=== PATIENT | female | born 1975 | race African-American/Black ===

== ENCOUNTER 2021-04-18 19:45 | Emergency (ER) | payer SELFPAY ==
[~2021-04-18] VITALS: Ht 167.6 cm; Wt 91.0 kg
[2021-04-18] MEDS ORDERED: ACETAMINOPHEN 325MG TABLET PO STA (22:17)
[2021-04-18 22:41] LABS: *AMPHETAMINES SCREEN URINE NEGATIVE (NEGATIVE); *BARBITURATES SCREEN URINE NEGATIVE (NEGATIVE); METHADONE URINE SCREEN NEGATIVE (NEGATIVE); OPIATES URINE SCREEN NEGATIVE (NEGATIVE)
[2021-04-18 22:42] LABS: PHENCYCLIDINE URINE SCREEN NEGATIVE (NEGATIVE)
[2021-04-18 22:43] LABS: *BENZODIAZEPINES SCREEN URINE PRESUMTIVE POSITIVE (NEGATIVE); *COCAINE SCREEN URINE PRESUMTIVE POSITIVE (NEGATIVE)
[2021-04-18 22:44] LABS: CANNABINOID URINE SCREEN PRESUMTIVE POSITIVE (NEGATIVE)
[2021-04-18 22:48] LABS: BASOPHILS % 0.3 % (0.0-2.0); EOSINOPHILS % 0.1 % (0.0-5.0); HEMATOCRIT. 36.2 % (36.0-48.0); HEMOGLOBIN. 12.2 g/dL (12.0-16.0); LYMPHOCYTES % 23.4 % (20.0-50.0); MEAN CORPUSCULAR HEMOGLOBIN 32.5 pg (28.0-32.0); MEAN CORPUSCULAR VOLUME 96.3 fL (81.0-99.0); MEAN PLATELET VOLUME 6.8 fl (7.4-10.4); MONOCYTES % 10.5 % (2.0-8.0); NEUTROPHILS % 65.7 % (40.0-76.0); PLATELET 200 x1000/uL (130-400); RED BLOOD CELL COUNT 3.76 mill/uL (4.2-5.4); RED CELL DISTRIBUTION WIDTH 22.6 % (11.6-14.6)
[2021-04-18 22:55] LABS: CHLORIDE 99 mEq/L (98-107)
[2021-04-18 23:11] LABS: ETHANOL BLOOD 302 mg/dL
[2021-04-18 23:15] LABS: PLATELET ESTIMATE NORMAL
[2021-04-19] MEDS ORDERED: KCL 20MEQ/100ML PREMIX 100 ML IV NR
[2021-04-19] MEDS ORDERED: POTASSIUM CHLORIDE 20MEQ TABLET SR PO NR
[2021-04-19] MEDS ORDERED: MAGNESIUM 2 G PREMIX 50 ML IV NR
[2021-04-19 05:14] VITALS: BP 128/76
== END 2021-04-19 05:40 | disposition home or self-care (01) ==
LOC: EDBD 19:45 → ER 19:45
DX: E87.6 Hypokalemia (principal); F41.0 Panic disorder [episodic paroxysmal anxiety]; R06.02 Shortness of breath; R53.1 Weakness; F13.10 Sedative, hypnotic or anxiolytic abuse, uncomplicated; F14.10 Cocaine abuse, uncomplicated; F12.10 Cannabis abuse, uncomplicated; F10.10 Alcohol abuse, uncomplicated; Y90.8 Blood alcohol level of 240 mg/100 ml or more; R79.89 Other specified abnormal findings of blood chemistry
CPT/HCPCS: 36415; 71045; 80053; 80305; 80307; 80320; 80329; 83880; 84484; 85025; 93005; 96365; 96368; 99285; J3475; J3480; G0480

== ENCOUNTER 2022-03-16 19:03 | Emergency (ER) | payer OTHER, MEDICAID ==
[~2022-03-16] VITALS: Ht 167.6 cm; Wt 90.0 kg
[2022-03-17] MEDS ORDERED: ACETAMINOPHEN 500MG TABLET PO ONE (00:45)
[2022-03-17] MEDS ORDERED: ACETAMINOPHEN 500MG TABLET PO NR (05:00)
[2022-03-17 08:50] VITALS: BP 157/79
== END 2022-03-17 08:58 | disposition home or self-care (01) ==
LOC: ER 19:03
DX: G40.909 Epilepsy, unspecified, not intractable, without status epilepticus (principal); F10.229 Alcohol dependence with intoxication, unspecified; Y90.9 Presence of alcohol in blood, level not specified; I10 Essential (primary) hypertension
CPT/HCPCS: 99285

== ENCOUNTER 2022-03-25 10:13 | Emergency (ER) | payer MEDICAID, OTHER ==
[~2022-03-25] VITALS: Ht 160 cm; Wt 86.0 kg
[2022-03-25] MEDS ORDERED: LEVETIRACETAM 1000MG PREMIX 100 ML IV ONE (10:30)
[2022-03-25 11:22] LABS: BASOPHILS % 1.2 % (0.0-2.0); EOSINOPHILS % 1.6 % (0.0-5.0); HEMATOCRIT. 33.7 % (36.0-48.0); HEMOGLOBIN. 10.9 g/dL (12.0-16.0); MEAN CORPUSCULAR HEMOGLOBIN 28.9 pg (28.0-32.0); MEAN CORPUSCULAR VOLUME 89.3 fL (81.0-99.0); MEAN PLATELET VOLUME 7.3 fl (7.4-10.4); MONOCYTES % 12.8 % (2.0-8.0); NEUTROPHILS % 41.4 % (40.0-76.0); PLATELET 150 x1000/uL (130-400); RED BLOOD CELL COUNT 3.78 mill/uL (4.2-5.4); RED CELL DISTRIBUTION WIDTH 19.4 % (11.6-14.6)
[2022-03-25 11:30] LABS: CHLORIDE 102 mEq/L (98-107)
[2022-03-25 11:53] LABS: VALPROIC ACID <3.0 ug/mL ug/mL (50-100)
[2022-03-25 12:00] LABS: CARBAMAZEPINE < 0.5 ug/mL (4-12); ETHANOL BLOOD 317 mg/dL
[2022-03-25] MEDS: ACETAMINOPHEN 325MG TABLET PO ONE ×2 (12:34→12:39)
[2022-03-25 13:28] LABS: PHENOBARBITAL < 2.1 ug/mL (15.0-40.0)
[2022-03-25 14:40] VITALS: BP 126/81
== END 2022-03-25 14:41 | disposition home or self-care (01) ==
LOC: ER 10:52
DX: R56.9 Unspecified convulsions (principal); I10 Essential (primary) hypertension; J45.909 Unspecified asthma, uncomplicated; Z91.14 Patient's other noncompliance with medication regimen
CPT/HCPCS: 36415; 70450; 71045; 80053; 80156; 80165; 80184; 80185; 80320; 85025; 93005; 96365; 99285; J1953; G0480

== ENCOUNTER 2022-03-26 21:07 | Emergency (ER) | payer OTHER ==
[~2022-03-26] VITALS: Ht 165.1 cm; Wt 77.0 kg
[2022-03-26] MEDS ORDERED: DIAZEPAM 5 MG TABLET PO ONE (21:30)
[2022-03-26] MEDS ORDERED: LEVETIRACETAM 1000MG PREMIX 100 ML IV ONE (21:30)
[2022-03-26 22:25] LABS: CLARITY URINE CLEAR (CLEAR); COLOR URINE DARK YELLOW (YELLOW); KETONES URINE NEGATIVE (NEGATIVE); LEUKOCYTE ESTERASE URINE TRACE (NEGATIVE); NITRITE URINE NEGATIVE (NEGATIVE); OCCULT BLOOD URINE NEGATIVE (NEGATIVE); PROTEIN URINE NEGATIVE (NEGATIVE); SPECIFIC GRAVITY URINE 1.008 (1.005-1.030); UROBILINOGEN URINE >8.0 E.U./dL (0.2-1.0)
[2022-03-26 22:37] LABS: *AMPHETAMINES SCREEN URINE NEGATIVE (NEGATIVE); *BARBITURATES SCREEN URINE NEGATIVE (NEGATIVE); *COCAINE SCREEN URINE NEGATIVE (NEGATIVE); CANNABINOID URINE SCREEN NEGATIVE (NEGATIVE); METHADONE URINE SCREEN NEGATIVE (NEGATIVE); OPIATES URINE SCREEN NEGATIVE (NEGATIVE); PHENCYCLIDINE URINE SCREEN NEGATIVE (NEGATIVE)
[2022-03-26 22:38] LABS: *BENZODIAZEPINES SCREEN URINE PRESUMTIVE POSITIVE (NEGATIVE)
[2022-03-26 23:03] LABS: BASOPHILS % 0.4 % (0.0-2.0); EOSINOPHILS % 1.4 % (0.0-5.0); HEMATOCRIT. 31.7 % (36.0-48.0); HEMOGLOBIN. 10.3 g/dL (12.0-16.0); LYMPHOCYTES % 43.5 % (20.0-50.0); MEAN CORPUSCULAR HEMOGLOBIN 29.3 pg (28.0-32.0); MEAN CORPUSCULAR VOLUME 90.1 fL (81.0-99.0); MEAN PLATELET VOLUME 7.1 fl (7.4-10.4); MONOCYTES % 8.7 % (2.0-8.0); PLATELET 131 x1000/uL (130-400); RED BLOOD CELL COUNT 3.51 mill/uL (4.2-5.4)
[2022-03-26 23:10] LABS: CHLORIDE 102 mEq/L (98-107)
[2022-03-26 23:32] LABS: ETHANOL BLOOD 332 mg/dL
[2022-03-26] MEDS ORDERED: POTASSIUM CHLORIDE 20MEQ TABLET SR PO ONE (23:45)
[2022-03-27] MEDS ORDERED: POTASSIUM CHLORIDE 20MEQ TABLET SR PO NR (01:55)
[2022-03-27 02:00] VITALS: BP 145/86
[2022-03-27] MEDS ORDERED: ACET-2708 MT (07:21)
[2022-03-27] MEDS ORDERED: ONDA4TAB50 MT (07:21)
== END 2022-03-27 02:30 | disposition home or self-care (01) ==
LOC: ER 21:07
DX: F10.229 Alcohol dependence with intoxication, unspecified (principal); Y90.8 Blood alcohol level of 240 mg/100 ml or more; R56.9 Unspecified convulsions; J45.909 Unspecified asthma, uncomplicated; I10 Essential (primary) hypertension; F20.9 Schizophrenia, unspecified
CPT/HCPCS: 36415; 70450; 80053; 80305; 80320; 81003; 85025; 96374; 99291; J1953; G0480

== ENCOUNTER 2022-03-27 06:31 | Emergency (ER) | payer MEDICAID, OTHER ==
[~2022-03-27] VITALS: Ht 160 cm; Wt 100.0 kg
[2022-03-27 06:43] VITALS: BP 149/101
[2022-03-27] MEDS ORDERED: ONDA4TAB50 MT (07:21)
[2022-03-27] MEDS ORDERED: ACET-2708 MT (07:21)
[2022-03-27] MEDS ORDERED: ONDANSETRON 4MG ODT PO ONE (07:30)
[2022-03-27] MEDS ORDERED: ACETAMINOPHEN 325MG TABLET PO ONE (07:30)
== END 2022-03-27 08:28 | disposition home or self-care (01) ==
LOC: ER 07:12
DX: F10.239 Alcohol dependence with withdrawal, unspecified (principal); J45.909 Unspecified asthma, uncomplicated; I10 Essential (primary) hypertension; F20.9 Schizophrenia, unspecified; Y90.0 Blood alcohol level of less than 20 mg/100 ml; Z76.5 Malingerer [conscious simulation]; Z00.00 Encounter for general adult medical examination without abnormal findings
CPT/HCPCS: 93005; 99283; Q0162

== ENCOUNTER 2022-04-05 16:04 | Emergency (ER) | payer MEDICAID, OTHER ==
[~2022-04-05] VITALS: Ht 170.2 cm; Wt 90.0 kg
[~2022-04-05 16:04] MED LIST: ACET-2708 MT; ONDA4TAB50 MT
[2022-04-05] MEDS ORDERED: LEVETIRACETAM 1000MG PREMIX 100 ML IV ONE (16:30)
[2022-04-05 18:27] LABS: BASOPHILS % 0.7 % (0.0-2.0); EOSINOPHILS % 1.8 % (0.0-5.0); HEMATOCRIT. 32.6 % (36.0-48.0); HEMOGLOBIN. 10.9 g/dL (12.0-16.0); MEAN CORPUSCULAR HEMOGLOBIN 30.1 pg (28.0-32.0); MEAN CORPUSCULAR VOLUME 89.8 fL (81.0-99.0); MEAN PLATELET VOLUME 6.9 fl (7.4-10.4); MONOCYTES % 13.9 % (2.0-8.0); NEUTROPHILS % 41.6 % (40.0-76.0); PLATELET 153 x1000/uL (130-400); RED BLOOD CELL COUNT 3.63 mill/uL (4.2-5.4); RED CELL DISTRIBUTION WIDTH 20.1 % (11.6-14.6)
[2022-04-05 18:34] LABS: CHLORIDE 101 mEq/L (98-107)
[2022-04-05] MEDS ORDERED: POTASSIUM CHLORIDE INJ 40 MEQ in DEXT 5% WATER 250 ML IV ONE (19:00)
[2022-04-05] MEDS ORDERED: POTASSIUM-SODIUM PHOSPHATE POWDER PACKET PO ONE (19:00)
[2022-04-05] MEDS ORDERED: POTASSIUM CHLORIDE 20MEQ/PACKET PO NR (20:00)
[2022-04-05] MEDS ORDERED: LEVETIRACETAM 1000MG PREMIX 100 ML IV NR (20:30)
[2022-04-05 20:31] LABS: CLARITY URINE CLEAR (CLEAR); COLOR URINE YELLOW (YELLOW); KETONES URINE NEGATIVE (NEGATIVE); LEUKOCYTE ESTERASE URINE TRACE (NEGATIVE); NITRITE URINE NEGATIVE (NEGATIVE); OCCULT BLOOD URINE NEGATIVE (NEGATIVE); PH URINE 6.5 (4.5-8.0); PROTEIN URINE NEGATIVE (NEGATIVE); SPECIFIC GRAVITY URINE 1.005 (1.005-1.030)
[2022-04-05 20:40] LABS: *AMPHETAMINES SCREEN URINE NEGATIVE (NEGATIVE); *BARBITURATES SCREEN URINE NEGATIVE (NEGATIVE); *COCAINE SCREEN URINE NEGATIVE (NEGATIVE); CANNABINOID URINE SCREEN NEGATIVE (NEGATIVE); METHADONE URINE SCREEN NEGATIVE (NEGATIVE); OPIATES URINE SCREEN NEGATIVE (NEGATIVE); PHENCYCLIDINE URINE SCREEN NEGATIVE (NEGATIVE)
[2022-04-05 20:44] LABS: *BENZODIAZEPINES SCREEN URINE PRESUMTIVE POSITIVE (NEGATIVE)
[2022-04-05] MEDS ORDERED: KETOROLAC 30MG/ML VIAL IV ONE (21:00)
[2022-04-05] MEDS: KCL 20MEQ/100ML X 2 FOR TOTAL KCL 40MEQ/200ML IV SCH ×2 (21:22→21:26)
[2022-04-05 22:35] LABS: ETHANOL BLOOD 336 mg/dL
[2022-04-06 04:00] VITALS: BP 122/72
[2022-04-06] MEDS ORDERED: TOPUD MT (04:07)
[2022-04-06] MEDS ORDERED: KEPP500 MT ×2 (04:07→12:49)
[2022-04-07] MEDS ORDERED: KEPP500 MT (14:42)
== END 2022-04-06 04:30 | disposition home or self-care (01) ==
LOC: ER 16:04
DX: G40.909 Epilepsy, unspecified, not intractable, without status epilepticus (principal); S09.8XXA Other specified injuries of head, initial encounter; E87.6 Hypokalemia; M47.812 Spondylosis without myelopathy or radiculopathy, cervical region; I44.0 Atrioventricular block, first degree; D64.9 Anemia, unspecified; W17.89XA Other fall from one level to another, initial encounter; Y93.89 Activity, other specified; Y92.480 Sidewalk as the place of occurrence of the external cause
CPT/HCPCS: 36415; 70450; 72125; 80053; 80305; 80320; 81003; 83735; 85025; 93005; 96365; 96366; 96375; 99285; J1885; J1953; J3480; G0480

== ENCOUNTER 2022-04-06 10:32 | Emergency (ER) | payer MEDICAID, OTHER ==
[~2022-04-06] VITALS: Ht 167.6 cm; Wt 100.0 kg
[~2022-04-06 10:32] MED LIST changes: +KEPP500 MT; +TOPUD MT
[2022-04-06 10:34] VITALS: BP 150/100
[2022-04-06] MEDS ORDERED: ONDANSETRON HCL 4MG/2ML INJ IV STA (10:43)
[2022-04-06] MEDS ORDERED: LEVETIRACETAM 500MG PREMIX 100 ML IV ONE (10:45)
[2022-04-06] MEDS ORDERED: SODIUM CHLORIDE 0.9% 1,000 ML IV ONE (10:45)
[2022-04-06 11:15] LABS: BASOPHILS % 0.6 % (0.0-2.0); HEMATOCRIT. 31.6 % (36.0-48.0); HEMOGLOBIN. 10.4 g/dL (12.0-16.0); LYMPHOCYTES % 35.9 % (20.0-50.0); MEAN CORPUSCULAR HEMOGLOBIN 29.5 pg (28.0-32.0); MEAN CORPUSCULAR VOLUME 89.5 fL (81.0-99.0); MEAN PLATELET VOLUME 6.8 fl (7.4-10.4); MONOCYTES % 13.4 % (2.0-8.0); NEUTROPHILS % 49.1 % (40.0-76.0); PLATELET 163 x1000/uL (130-400); RED BLOOD CELL COUNT 3.53 mill/uL (4.2-5.4); RED CELL DISTRIBUTION WIDTH 20.1 % (11.6-14.6)
[2022-04-06 11:25] LABS: CHLORIDE 103 mEq/L (98-107)
[2022-04-06 11:42] LABS: ETHANOL BLOOD 363 mg/dL
[2022-04-06 12:10] LABS: *AMPHETAMINES SCREEN URINE NEGATIVE (NEGATIVE); *BARBITURATES SCREEN URINE NEGATIVE (NEGATIVE); *COCAINE SCREEN URINE NEGATIVE (NEGATIVE); CANNABINOID URINE SCREEN NEGATIVE (NEGATIVE); METHADONE URINE SCREEN NEGATIVE (NEGATIVE); OPIATES URINE SCREEN NEGATIVE (NEGATIVE); PHENCYCLIDINE URINE SCREEN NEGATIVE (NEGATIVE)
[2022-04-06] MEDS ORDERED: CHLORDIAZEPOXIDE 25MG CAPSULE PO ONE (12:45)
[2022-04-06] MEDS ORDERED: POTASSIUM CHLORIDE 20MEQ TABLET SR PO ONE (12:45)
[2022-04-06] MEDS ORDERED: KEPP500 MT (12:49)
[2022-04-06 12:50] LABS: *BENZODIAZEPINES SCREEN URINE PRESUMTIVE POSITIVE (NEGATIVE)
[2022-04-06] MEDS ORDERED: CHLORDIAZEPOXIDE 25MG CAPSULE PO NR (13:15)
[2022-04-07] MEDS ORDERED: KEPP500 MT (14:42)
== END 2022-04-06 15:24 | disposition home or self-care (01) ==
LOC: ER 10:40
DX: R56.9 Unspecified convulsions (principal); T51.0X1A Toxic effect of ethanol, accidental (unintentional), initial encounter; E87.6 Hypokalemia; F17.200 Nicotine dependence, unspecified, uncomplicated; F12.10 Cannabis abuse, uncomplicated; I10 Essential (primary) hypertension; J45.909 Unspecified asthma, uncomplicated; Y92.9 Unspecified place or not applicable
CPT/HCPCS: 36415; 80053; 80305; 80320; 85025; 96365; 96375; 99284; C1893; J1953; J2405; J7030; G0480

== ENCOUNTER 2022-04-07 14:30 | Emergency (ER) | payer MEDICAID ==
[~2022-04-07] VITALS: Ht 160 cm; Wt 100.0 kg
[2022-04-07 14:31] VITALS: BP 133/87
[2022-04-07] MEDS ORDERED: KEPP500 MT (14:42)
== END 2022-04-07 14:54 | disposition home or self-care (01) ==
LOC: ER 14:30
DX: Z76.0 Encounter for issue of repeat prescription (principal); G40.909 Epilepsy, unspecified, not intractable, without status epilepticus; I10 Essential (primary) hypertension
CPT/HCPCS: 99283

== ENCOUNTER 2022-04-25 19:12 | Emergency (ER) | payer MEDICAID ==
[~2022-04-25] VITALS: Ht 165.1 cm; Wt 82.0 kg
[2022-04-25] MEDS ORDERED: LEVETIRACETAM 500MG PREMIX 100 ML IV ONE (19:45)
[2022-04-25 20:36] VITALS: BP 115/76
== END 2022-04-25 21:39 | disposition left against medical advice (07) ==
LOC: ER 19:12
DX: G40.909 Epilepsy, unspecified, not intractable, without status epilepticus (principal)
CPT/HCPCS: 99283

== ENCOUNTER 2022-04-26 19:13 | Emergency (ER) | payer MEDICAID ==
[~2022-04-26] VITALS: Ht 165.1 cm; Wt 113.0 kg
[2022-04-26 19:14] VITALS: BP 148/76
[2022-04-26] MEDS ORDERED: SODIUM CHLORIDE 0.9% 1,000 ML IV ONE (19:45)
== END 2022-04-27 00:50 | disposition home or self-care (01) ==
LOC: ER 19:13
DX: F10.229 Alcohol dependence with intoxication, unspecified (principal); Y90.8 Blood alcohol level of 240 mg/100 ml or more; I10 Essential (primary) hypertension; G31.9 Degenerative disease of nervous system, unspecified; G40.909 Epilepsy, unspecified, not intractable, without status epilepticus
CPT/HCPCS: 70450; 93005; 99284; J7030